=== PATIENT | female | born 1960 | race Hispanic/Latino ===

== ENCOUNTER 2024-03-07 23:54 | Emergency (ER) | payer SELFPAY ==
[2024-03-08] MEDS ORDERED: LIDOCAINE 1% 20 ML MDV ONE (00:30)
[2024-03-08] MEDS ORDERED: HYDROCODONE/APAP 10/325 TAB ONE (00:31)
[2024-03-08] MEDS ORDERED: DIAZEPAM 5 MG TABLET ONE (00:31)
[2024-03-08] MEDS ORDERED: ONDANSETRON 4 MG (ODT) TAB ONE (00:31)
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
[2024-03-08 04:34] VITALS: BP 99/83; TEMP 98; O2SAT 100
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
== END 2024-03-08 04:18 | disposition home or self-care (01) ==
LOC: ER 23:54
PROC: 0HQ0XZZ Repair Scalp Skin, External Approach (ICD-10-PCS; principal; 2024-03-08)
DX: S01.01XA Laceration without foreign body of scalp, initial encounter (principal); S20.211A Contusion of right front wall of thorax, initial encounter; Y04.8XXA Assault by other bodily force, initial encounter
CPT/HCPCS: 70450; 71250; 72125; J2001; Q0162